=== PATIENT | male | born 1985 | race Hispanic/Latino ===

== ENCOUNTER 2021-06-19 10:31 | Day surgery (SDC) | payer OTHER ==
[2021-06-19] VITALS (15 sets, daily range): BP systolic 101–118; BP diastolic 62–73
[~2021-06-19] VITALS: Ht 165.1 cm; Wt 88.5 kg
[~2021-06-19 10:31] MED LIST: 0.9%NACL 1000ML 1,000 ML IV ONE
[2021-06-19] MEDS ORDERED: VITAMIN D3 PO (11:04)
[2021-06-19] MEDS ORDERED: TRAZ-185 PO (11:04)
[2021-06-19] MEDS ORDERED: IOHEXOL-350 50ML VIAL IV ONE (11:31)
[2021-06-19] MEDS ORDERED: LIDOCAINE PF 100MG/5ML (2%) SYRINGE 5ML ONE (11:48)
[2021-06-19] MEDS ORDERED: SUCCINYLCHOLINE 200MG/10ML SYR ONE (11:48)
[2021-06-19] MEDS ORDERED: PROPOFOL 10 MG/ML 20ML VIAL IV ONE (11:49)
[2021-06-19] MEDS ORDERED: FENTANYL CITRATE PF 50 MCG/1 ML 2ML VIAL ONE (11:49)
[2021-06-19] MEDS ORDERED: MIDAZOLAM HCL 1 MG/ML 2ML VIAL ONE (11:49)
[2021-06-19] MEDS ORDERED: ONDANSETRON 4MG INJ ONE (11:49)
== END 2021-06-19 13:40 | disposition home or self-care (01) ==
LOC: DAH 10:31 → ENDO 10:31
PROVIDERS: ATTEND Internal Medicine Gastroenterology
DX: Z46.59 Encounter for fitting and adjustment of other gastrointestinal appliance and device (principal); K80.50 Calculus of bile duct without cholangitis or cholecystitis without obstruction; R93.2 Abnormal findings on diagnostic imaging of liver and biliary tract; F41.9 Anxiety disorder, unspecified; F32.9 Major depressive disorder, single episode, unspecified; R14.0 Abdominal distension (gaseous); K21.9 Gastro-esophageal reflux disease without esophagitis; K29.50 Unspecified chronic gastritis without bleeding; Z79.899 Other long term (current) drug therapy; Z20.822 Contact with and (suspected) exposure to COVID-19
CPT/HCPCS: 43275; 74328; 87635; A4215 ×2; A4221; A4222; A4223; A4606; A4657; A4663; C1769; C1773; C9803; J0330; J2001; J2250; J2405; J2704; J3010; J7030; Q9967; 74330